=== PATIENT | female | born 1995 | race Caucasian/White ===

== ENCOUNTER 2018-04-09 20:02 | Emergency (ER) | payer MEDICAID ==
[2018-04-09 20:27] LABS: BILIRUBIN,URINE Negative (NEGATIVE); COLOR,URINE Dark Yellow (YELLOW); GLUCOSE, URINE (UA) Negative (NEGATIVE); KETONES,URINE >=160 mg/dL (NEGATIVE); LEUKOCYTE ESTERASE ,URINE Trace (NEGATIVE); NITRATE,URINE Negative (NEGATIVE); OCCULT BLOOD,URINE Negative (NEGATIVE); PROTEIN,URINE Negative (NEGATIVE)
[2018-04-09 20:29] LABS: APPEARANCE,URINE Clear (CLEAR)
[2018-04-09 20:34] LABS: BASOPHILS % (AUTO) 0.5 % (0.0-5.0); EOSINOPHILS % (AUTO) 0.5 % (0.0-8.0); HEMATOCRIT 38.4 % (36-48); LYMPHOCYTES % (AUTO) 26.6 % (21.0-51.0); MEAN CORPUSCULAR HEMOGLOBIN 29.7 pg (27.0-33.0); MEAN CORPUSCULAR HGB CONC 34.3 g/dL (32.0-36.0); MEAN CORPUSCULAR VOLUME 86.6 fL (79-99); MONOCYTES % (AUTO) 8.1 % (3.0-13.0); NEUTROPHILS % (AUTO) 64.3 % (40.0-77.0); PLATELET COUNT (AUTO) 287 K/uL (130-400); RED BLOOD CELL COUNT(AUTO) 4.43 MIL/uL (4.00-5.50); RED CELL DISTRIBUTION WIDTH 12.6 % (11.0-15.5); WHITE BLOOD COUNT (AUTO) 11.1 K/uL (4.8-10.8)
[2018-04-09] MEDS ORDERED: ACETAMINOPHEN 325 MG TAB ONE (20:34)
[2018-04-09 20:50] LABS: BACTERIA,URINE Rare /HPF (None Seen); MUCUS,URINE Many LPF (None Seen); RBC,URINE None Seen /HPF (0-1); WBC,URINE None Seen /HPF (0-1)
[2018-04-09 20:52] LABS: CREATININE 0.5 mg/dL (0.5-1.5); POTASSIUM 3.5 mmol/L (3.5-5.1)
[2018-04-09 20:57] LABS: ALBUMIN 3.7 g/dL (3.5-5.0); BILIRUBIN,TOTAL 0.6 mg/dL (0.2-1.0)
== END 2018-04-09 23:19 | disposition home or self-care (01) ==
LOC: EDH 20:02
DX: O26.891 Other specified pregnancy related conditions, first trimester (principal); R10.30 Lower abdominal pain, unspecified; R82.71 Bacteriuria; Z3A.13 13 weeks gestation of pregnancy; Z87.442 Personal history of urinary calculi; Z88.1 Allergy status to other antibiotic agents; Z79.899 Other long term (current) drug therapy
CPT/HCPCS: 36415; 76801; 80053; 81001; 83690; 85025

== ENCOUNTER 2020-01-10 05:56 | Day surgery (SDC) | payer MEDICAID ==
[2020-01-09 16:36] VITALS: BP 112/75
[2020-01-09 16:39] LABS: EOSINOPHILS % (AUTO) 2.1 % (0.0-8.0); HEMATOCRIT 41.2 % (36-48); LYMPHOCYTES % (AUTO) 43.2 % (21.0-51.0); MEAN CORPUSCULAR HGB CONC 30.6 g/dL (32.0-36.0); MEAN CORPUSCULAR VOLUME 88.2 fL (79-99); MONOCYTES % (AUTO) 8.5 % (3.0-13.0); NEUTROPHILS % (AUTO) 44.8 % (40.0-77.0); PLATELET COUNT (AUTO) 272 K/uL (130-400); RED BLOOD CELL COUNT(AUTO) 4.67 MIL/uL (4.00-5.50); RED CELL DISTRIBUTION WIDTH 14.1 % (11.0-15.5); WHITE BLOOD COUNT (AUTO) 7.2 K/uL (4.8-10.8)
[~2020-01-10] VITALS: Ht 172.7 cm; Wt 86.5 kg
[2020-01-10] VITALS (17 sets, daily range): BP systolic 97–119; BP diastolic 50–77
[2020-01-10] MEDS: CEFAZOLIN SODIUM 1 GM VIAL IVP SCH ×2 (06:00→07:24)
[2020-01-10] MEDS: LACTATED RINGERS 1000ML 1,000 ML IV SCH ×2 (06:46→07:46)
[2020-01-10] MEDS ORDERED: OCTYL 2-CYANOACRYLATE 1 EACH TP ONE (06:54)
[2020-01-10] MEDS ORDERED: BUPIVACAINE/PF 0.25% 30ML VIAL IJ ONE (06:54)
[2020-01-10] MEDS ORDERED: FENTANYL CITRATE PF 50 MCG/1 ML 2ML VIAL ONE ×2 (07:21→07:45)
[2020-01-10] MEDS ORDERED: PROPOFOL 10 MG/ML 20ML VIAL IV ONE (07:21)
[2020-01-10] MEDS ORDERED: LIDOCAINE PF 2% 5ML ABBOJECT ONE (07:21)
[2020-01-10] MEDS ORDERED: ONDANSETRON HCL 4 MG/2 ML VIAL ONE (07:21)
[2020-01-10] MEDS ORDERED: DEXAMETHASONE SOD PHOSPHATE 10MG/ML 1ML VIAL ONE (07:21)
[2020-01-10] MEDS ORDERED: MIDAZOLAM HCL 1 MG/ML 2ML VIAL ONE (07:21)
[2020-01-10] MEDS ORDERED: ROCURONIUM 10MG/1ML SYR 10 MG/ML ML ONE (07:22)
[2020-01-10] MEDS ORDERED: KETOROLAC TROMETHAMINE 30MG/ML ONE (08:31)
[2020-01-10] MEDS ORDERED: MEPERIDINE-PF 25 MG/ML SYG ONE ×2 (08:31→08:42)
== END 2020-01-10 10:10 | disposition home or self-care (01) ==
LOC: DAH 05:56
PROVIDERS: ATTEND Obstetrics & Gynecology
DX: Z30.2 Encounter for sterilization (principal); J45.909 Unspecified asthma, uncomplicated; Z64.1 Problems related to multiparity; E66.9 Obesity, unspecified; Z88.1 Allergy status to other antibiotic agents; Z83.3 Family history of diabetes mellitus; Z82.49 Family history of ischemic heart disease and other diseases of the circulatory system
CPT/HCPCS: 36415; 58670; 84703; 85025; 86850; 86900; 86901; A4213; A4215 ×2; A4221; A4222; A4223; A4351; A4600; A4606; A4649; A4663; A4930 ×2; A6260; C1769 ×3; G0168; J0690; J1100; J1885; J2001; J2175 ×2; J2250; J2405; J2704; J3010; J3490; J7030; J7120 ×2